=== PATIENT | male | born 1960 | race Two or more races ===

== ENCOUNTER 2022-03-18 20:08 | Inpatient (IN) | payer OTHER ==
[~2022-03-18] VITALS: Ht 175.3 cm; Wt 114.6 kg
[2022-03-18] MEDS ORDERED: IOHEXOL 350 MG/ML 100ML IJ ONE (20:56)
[2022-03-18] MEDS ORDERED: SODIUM CHLORIDE 0.9% 3,000 ML IV ONE (21:15)
[2022-03-18 22:31] LABS: Basophils # (auto) 0.1 10 ^3/uL (0-0.2); Basophils % (auto) 0.6 % (0.0-2.0); Eosinophils # (auto) 0 10 ^3/uL (0-0.8); Eosinophils % (auto) 0.1 % (0.0-7.0); Hematocrit 39.8 % (41.0-53.0); Hemoglobin 13.4 g/dL (13.5-17.5); Lymphocytes % (auto) 9.6 % (10.0-50.0); Mean Corpuscular Hemoglobin 29.7 pg (28.0-32.0); Mean Corpuscular Hgb Conc. 33.7 g/dL (32.0-36.0); Monocytes % (auto) 9.8 % (0.0-12.0); Neutrophils # (auto) 8.5 10 ^3/uL (1.6-8.6); Neutrophils % (auto) 79.9 % (37.0-80.0); Red Blood Cells 4.52 10^6/uL (4.5-5.90); Red Cell Distribution Width 12.7 % (11.8-14.3); White Blood Cell 10.6 10^3/uL (4.4-10.8)
[2022-03-18 22:50] LABS: Albumin 3.8 g/dL (3.4-5.0); BUN/Creatinine Ratio 17.3; Calcium 9.3 mg/dL (8.5-10.1); Potassium 4.3 mmol/L (3.5-5.1)
[2022-03-18 22:53] LABS: Total Protein 7.8 g/dL (6.4-8.2)
[2022-03-19] MEDS ORDERED: fentaNYL CITRATE 100 MCG/2 ML VL IV ONE (01:00)
[2022-03-19 03:28] LABS: Alcohol, Urine < 3.0 mg/dL (0-10); Amphetamine Screen, Urine NEGATIVE (NEGATIVE); Barbiturate Scree,Urine NEGATIVE (NEGATIVE); Benzodiazephine Screen, Urine NEGATIVE (NEGATIVE); Cannabinoid Screen, Urine NEGATIVE (NEGATIVE); Cocaine Screen, Urine NEGATIVE (NEGATIVE); Opiate Scree,Urine NEGATIVE (NEGATIVE); Phencyclidine Screen, Urine NEGATIVE (NEGATIVE)
[2022-03-19 03:48] LABS: Urine Bacteria NONE SEEN /hpf (None Seen); Urine WBC 1 /hpf (0 - 3)
[2022-03-19 03:51] LABS: Urine Specific Gravity 1.015 (1.001-1.035)
[2022-03-19 03:52] LABS: Urine Blood 1+ /uL (Negative)
[2022-03-19] MEDS ORDERED: HYDROmorphone HCL 2 MG/ML VL/or syr IV ONE (04:30)
[2022-03-19] MEDS ORDERED: ONDANSETRON HCL 4 MG/2 ML VIAL IV ONE (04:30)
[2022-03-19] MEDS ORDERED: MORPHINE SULFATE INJ 2 MG/ml SYRG IV PRN (09:45)
[2022-03-19] MEDS ORDERED: ACETAMINOPHEN 325 MG TAB PO PRN (09:45)
[2022-03-19] MEDS ORDERED: NITROGLYCERIN 0.4 MG SL TAB SL PRN (09:45)
[2022-03-19] MEDS ORDERED: D5W/SOD CHL 0.45%/KCL 20MEQ 1,000 ML IV ONE (09:45)
[2022-03-19] MEDS ORDERED: DEXTROSE (50%) 50ML SYRG IV PRN (09:45)
[2022-03-19] MEDS: metroNIDAZOLE 500MG/100ML 100 ML IV SCH ×2 (10:13→17:47)
[2022-03-19] MEDS: PANTOPRAZOLE 40 MG/10 ML VIAL INJ IV SCH (10:14)
[2022-03-19] MEDS: ENOXAPARIN SOD 40 MG/0.4 ML SYRINGE SC SCH (10:14)
[2022-03-19] MEDS: HYDROmorphone HCL 2 MG/ML VL/or syr IV PRN ×3 (10:40→21:58)
[2022-03-19] MEDS: ONDANSETRON HCL 4 MG/2 ML VIAL IV PRN (10:41)
[2022-03-19 10:59] LABS: Cholesterol 142 mg/dL (< 200); HDL Cholesterol 47 mg/dL (40-59); LDL Cholesterol 75 mg/dL (< 100); Triglycerides 123 mg/dL (< 150)
[2022-03-19] MEDS: CIPROFLOXACIN 400MG/200ML 200 ML IV SCH ×2 (11:10→21:56)
[2022-03-19] MEDS ORDERED: SODIUM CHLORIDE 0.9% 1,000 ML IV ONE (11:45)
[2022-03-19] MEDS: ACCU-CHEK COMFORT CURVE STRIP VI SCH ×2 (11:58→17:56)
[2022-03-19] MEDS: InsuLIN REG 1unit/0.01ml Soln (100units/ml) SC SCH ×2 (12:01→17:56)
[2022-03-20] MEDS: InsuLIN REG 1unit/0.01ml Soln (100units/ml) SC SCH ×5 (01:02→22:20)
[2022-03-20] MEDS: ACCU-CHEK COMFORT CURVE STRIP VI SCH ×5 (01:03→22:20)
[2022-03-20] MEDS: metroNIDAZOLE 500MG/100ML 100 ML IV SCH ×3 (02:43→18:19)
[2022-03-20 05:39] LABS: Basophils # (auto) 0 10 ^3/uL (0-0.2); Basophils % (auto) 0.2 % (0.0-2.0); Eosinophils # (auto) 0 10 ^3/uL (0-0.8); Hemoglobin 11.6 g/dL (13.5-17.5); Lymphocytes # (auto) 0.6 10 ^3/uL (0.4-5.4); Lymphocytes % (auto) 3.3 % (10.0-50.0); Mean Corpuscular Hemoglobin 30.8 pg (28.0-32.0); Mean Corpuscular Hgb Conc. 34.2 g/dL (32.0-36.0); Monocytes # (auto) 1.4 10 ^3/uL (0-1.3); Monocytes % (auto) 8.2 % (0.0-12.0); Neutrophils # (auto) 15.3 10 ^3/uL (1.6-8.6); Neutrophils % (auto) 88.3 % (37.0-80.0); Red Blood Cells 3.78 10^6/uL (4.5-5.90); Red Cell Distribution Width 13.5 % (11.8-14.3); White Blood Cell 17.4 10^3/uL (4.4-10.8)
[2022-03-20 05:53] LABS: Albumin 3.5 g/dL (3.4-5.0); Calcium 8.6 mg/dL (8.5-10.1); Potassium 4.4 mmol/L (3.5-5.1)
[2022-03-20 05:58] LABS: BUN/Creatinine Ratio 12.1; Total Protein 7.2 g/dL (6.4-8.2)
[2022-03-20] MEDS: ONDANSETRON HCL 4 MG/2 ML VIAL IV PRN ×4 (06:21→22:49)
[2022-03-20] MEDS: HYDROmorphone HCL 2 MG/ML VL/or syr IV PRN ×4 (06:24→22:50)
[2022-03-20] MEDS: ENOXAPARIN SOD 40 MG/0.4 ML SYRINGE SC SCH (09:47)
[2022-03-20] MEDS: PANTOPRAZOLE 40 MG/10 ML VIAL INJ IV SCH (09:55)
[2022-03-20] MEDS: CIPROFLOXACIN 400MG/200ML 200 ML IV SCH ×2 (10:41→22:49)
[2022-03-20 11:40] LABS: INR 1.29 (0.9-1.15); Partial Thromboplastin Time 32.2 sec (24.6-33.4)
[2022-03-20] MEDS ORDERED: HYDROcodone-ACET 5/325MG TAB PO PRN (13:00)
[2022-03-20] MEDS ORDERED: diphenhdrAMINE HCL 50 MG/1 ML VL IV ONE (13:00)
[2022-03-20 13:01] LABS: Hepatitis B Surface Antibody Negative (Negative)
[2022-03-20 13:39] LABS: Hepatitis A Total Antibody Negative (Negative)
[2022-03-20] MEDS: SODIUM CHLORIDE 0.9% 1,000 ML IV SCH ×2 (13:45→20:30)
[2022-03-20 15:54] LABS: Hepatitis C Antibody Negative (Negative)
[2022-03-20 16:48] VITALS: BP 92/60
[2022-03-20 16:50] VITALS: BP 92/60
[2022-03-20] MEDS ORDERED: DULA0.5I SC (21:23)
[2022-03-20] MEDS ORDERED: INSU1INJ19 SC (21:23)
[2022-03-20] MEDS ORDERED: SIMV-8 PO (21:23)
[2022-03-20] MEDS ORDERED: SERT25TA14 PO (21:23)
[2022-03-20] MEDS ORDERED: HYDR200T36 PO (21:23)
[2022-03-20] MEDS ORDERED: GABA-339 PO (21:23)
[2022-03-20] MEDS ORDERED: METO5TAB2 PO (21:23)
[2022-03-20] MEDS ORDERED: LISI2.5T47 PO (21:23)
[2022-03-20 22:00] VITALS: BP 114/57
[2022-03-20] MEDS: INSULIN LANTUS (GLARGINE) 1 /0.01ml (100units/ml) SC SCH (22:21)
[2022-03-21] VITALS (38 sets, daily range): BP systolic 81–179; BP diastolic 49–100
[2022-03-21] MEDS: metroNIDAZOLE 500MG/100ML 100 ML IV SCH ×3 (01:57→18:45)
[2022-03-21] MEDS: SODIUM CHLORIDE 0.9% 1,000 ML IV SCH ×3 (04:30→18:27)
[2022-03-21] MEDS: ACCU-CHEK COMFORT CURVE STRIP VI SCH ×3 (05:50→17:54)
[2022-03-21] MEDS: InsuLIN REG 1unit/0.01ml Soln (100units/ml) SC SCH ×3 (06:02→18:00)
[2022-03-21 06:25] LABS: Basophils # (auto) 0 10 ^3/uL (0-0.2); Basophils % (auto) 0.1 % (0.0-2.0); Eosinophils # (auto) 0 10 ^3/uL (0-0.8); Hematocrit 32.5 % (41.0-53.0); Lymphocytes # (auto) 0.9 10 ^3/uL (0.4-5.4); Lymphocytes % (auto) 6.1 % (10.0-50.0); Mean Corpuscular Hemoglobin 30.9 pg (28.0-32.0); Mean Corpuscular Hgb Conc. 33.8 g/dL (32.0-36.0); Mean Corpuscular Volume 91.6 fL (80.0-100.0); Monocytes # (auto) 1.2 10 ^3/uL (0-1.3); Monocytes % (auto) 8.1 % (0.0-12.0); Neutrophils # (auto) 12.9 10 ^3/uL (1.6-8.6); Neutrophils % (auto) 85.7 % (37.0-80.0); Red Blood Cells 3.54 10^6/uL (4.5-5.90); Red Cell Distribution Width 13.5 % (11.8-14.3); White Blood Cell 15.1 10^3/uL (4.4-10.8)
[2022-03-21 06:51] LABS: Potassium 4.4 mmol/L (3.5-5.1)
[2022-03-21 06:55] LABS: Albumin 3.3 g/dL (3.4-5.0); BUN/Creatinine Ratio 8.9; Calcium 8.9 mg/dL (8.5-10.1)
[2022-03-21 06:58] LABS: Bilirubin, Total 6.2 mg/dL (0.2-1.0); Total Protein 6.3 g/dL (6.4-8.2)
[2022-03-21] MEDS: HYDROmorphone HCL 2 MG/ML VL/or syr IV PRN (08:05)
[2022-03-21] MEDS: ONDANSETRON HCL 4 MG/2 ML VIAL IV PRN (08:16)
[2022-03-21] MEDS: ENOXAPARIN SOD 40 MG/0.4 ML SYRINGE SC SCH (10:00)
[2022-03-21] MEDS: GABAPENTIN 300 MG CAP PO SCH ×3 (10:00→22:00)
[2022-03-21] MEDS ORDERED: levoFLOXacin 500MG 100 ML IV ONE (10:00)
[2022-03-21] MEDS: PANTOPRAZOLE 40 MG/10 ML VIAL INJ IV SCH (10:00)
[2022-03-21] MEDS: CIPROFLOXACIN 400MG/200ML 200 ML IV SCH ×2 (10:00→22:05)
[2022-03-21] MEDS ORDERED: BUPIVACAINE W/ EPINEPH 0.25% INJ 50ML MDV ONE (11:44)
[2022-03-21] MEDS ORDERED: fentaNYL CITRATE 100 MCG/2 ML VL ONE (12:19)
[2022-03-21] MEDS ORDERED: MIDAZOLAM HCL 2MG/2ML 2ml VIAL (1mg/ml) ONE (12:19)
[2022-03-21] MEDS ORDERED: ROCURONIUM 10MG/ML 10ML VIAL IV ONE (12:20)
[2022-03-21] MEDS ORDERED: LIDOCAINE 2% (LOCAL ANESTH.) PF 5ml SDV ONE (12:20)
[2022-03-21] MEDS ORDERED: ONDANSETRON HCL 4 MG/2 ML VIAL ONE (12:20)
[2022-03-21] MEDS ORDERED: PROPOFOL 10 MG/ML 20 ML IV ONE (12:20)
[2022-03-21] MEDS ORDERED: ONDANSETRON HCL 4 MG/2 ML VIAL IV PRN (13:15)
[2022-03-21] MEDS ORDERED: HYDROmorphone HCL 2 MG/ML VL/or syr IV PRN (13:15)
[2022-03-21] MEDS ORDERED: SUCCINYLCHOLINE CHLORIDE 20 MG/ML 10ML VIAL IV ONE (14:53)
[2022-03-21] MEDS: MIDAZOLAM DRIP 50 mg/50mL 50 ML IV SCH ×2 (17:22→21:56)
[2022-03-21] MEDS ORDERED: METOPROLOL TARTRATE 1MG/1ML-5ML VIAL IV PRN (18:30)
[2022-03-21] MEDS: fentaNYL Drip 2500mCg/250mlNS 250 ML IV SCH (18:45)
[2022-03-21] MEDS: SODIUM BICARBONATE 50ML VIAL 50 ML in SOD CHL 0.45% 1,000 ML IV SCH (20:08)
[2022-03-21] MEDS: INSULIN LANTUS (GLARGINE) 1 /0.01ml (100units/ml) SC SCH (22:19)
[2022-03-21] MEDS ORDERED: NOREPINEPHRINE 8 MG/250ML KIT 250 ML IV ONE (23:32)
[2022-03-22] VITALS (91 sets, daily range): BP systolic 81–168; BP diastolic 49–81
[2022-03-22 00:01] LABS: Hematocrit 28.6 % (41.0-53.0); Hemoglobin 9.8 g/dL (13.5-17.5)
[2022-03-22] MEDS: NOREPINEPHRINE 8 MG/250ML KIT 250 ML IV SCH ×2 (00:01→23:45)
[2022-03-22] MEDS: InsuLIN REG 1unit/0.01ml Soln (100units/ml) SC SCH ×4 (00:04→18:29)
[2022-03-22] MEDS: ACCU-CHEK COMFORT CURVE STRIP VI SCH ×4 (00:06→18:25)
[2022-03-22] MEDS: SODIUM BICARBONATE 50ML VIAL 50 ML in SOD CHL 0.45% 1,000 ML IV SCH ×3 (01:45→14:00)
[2022-03-22] MEDS: metroNIDAZOLE 500MG/100ML 100 ML IV SCH ×3 (02:26→18:23)
[2022-03-22 04:30] LABS: Basophils # (auto) 0 10 ^3/uL (0-0.2); Basophils % (auto) 0.4 % (0.0-2.0); Eosinophils # (auto) 0.1 10 ^3/uL (0-0.8); Eosinophils % (auto) 0.9 % (0.0-7.0); Hematocrit 29.1 % (41.0-53.0); Hemoglobin 9.8 g/dL (13.5-17.5); Lymphocytes # (auto) 0.6 10 ^3/uL (0.4-5.4); Lymphocytes % (auto) 7.6 % (10.0-50.0); Mean Corpuscular Hemoglobin 30.1 pg (28.0-32.0); Mean Corpuscular Hgb Conc. 33.6 g/dL (32.0-36.0); Mean Corpuscular Volume 89.5 fL (80.0-100.0); Monocytes % (auto) 11.4 % (0.0-12.0); Neutrophils # (auto) 6.8 10 ^3/uL (1.6-8.6); Neutrophils % (auto) 79.7 % (37.0-80.0); Nucleated Red Blood Cells % 0.1 %; Red Blood Cells 3.25 10^6/uL (4.5-5.90); Red Cell Distribution Width 13.6 % (11.8-14.3); White Blood Cell 8.5 10^3/uL (4.4-10.8)
[2022-03-22 05:01] LABS: Albumin 2.4 g/dL (3.4-5.0); Calcium 7.8 mg/dL (8.5-10.1)
[2022-03-22 05:07] LABS: BUN/Creatinine Ratio 9.8; Bilirubin, Total 5.9 mg/dL (0.2-1.0); Total Protein 4.9 g/dL (6.4-8.2)
[2022-03-22] MEDS ORDERED: ACETAMINOPHEN 650 mg PER 20.3 mL UD ONE (06:00)
[2022-03-22] MEDS: GABAPENTIN 300 MG CAP PO SCH ×3 (06:00→22:29)
[2022-03-22] MEDS: ENOXAPARIN SOD 40 MG/0.4 ML SYRINGE SC SCH (10:06)
[2022-03-22] MEDS: PANTOPRAZOLE 40 MG/10 ML VIAL INJ IV SCH (10:07)
[2022-03-22] MEDS ORDERED: FUROSEMIDE 100 MG/10ML VIAL IV ONE (11:00)
[2022-03-22] MEDS: CIPROFLOXACIN 400MG/200ML 200 ML IV SCH ×2 (11:47→22:30)
[2022-03-22 12:21] LABS: Urine Bacteria NONE SEEN /hpf (None Seen); Urine Blood 3+ /uL (Negative); Urine Specific Gravity 1.016 (1.001-1.035); Urine WBC 7 /hpf (0 - 3)
[2022-03-22 12:26] LABS: Sodium Urine 33 mmol/L (40-220)
[2022-03-22 12:29] LABS: Creatinine, Urine 136 mg/dL (30.0-125.0)
[2022-03-22] MEDS ORDERED: BUMETANIDE 2.5mg/10ml (0.25 mg/ml) INJ IV ONE (18:15)
[2022-03-22] MEDS: fentaNYL Drip 2500mCg/250mlNS 250 ML IV SCH (18:30)
[2022-03-22] MEDS: INSULIN LANTUS (GLARGINE) 1 /0.01ml (100units/ml) SC SCH (23:14)
[2022-03-23] VITALS (61 sets, daily range): BP systolic 104–155; BP diastolic 39–83
[2022-03-23] MEDS: ACCU-CHEK COMFORT CURVE STRIP VI SCH ×4 (00:50→18:08)
[2022-03-23] MEDS: InsuLIN REG 1unit/0.01ml Soln (100units/ml) SC SCH ×4 (00:51→18:00)
[2022-03-23] MEDS: SODIUM BICARBONATE 50ML VIAL 50 ML in SOD CHL 0.45% 1,000 ML IV SCH ×3 (04:16→23:30)
[2022-03-23] MEDS: metroNIDAZOLE 500MG/100ML 100 ML IV SCH ×3 (04:16→18:09)
[2022-03-23 04:26] LABS: Basophils # (auto) 0.1 10 ^3/uL (0-0.2); Eosinophils # (auto) 0.2 10 ^3/uL (0-0.8); Eosinophils % (auto) 2.4 % (0.0-7.0); Hematocrit 31.6 % (41.0-53.0); Hemoglobin 10.8 g/dL (13.5-17.5); Lymphocytes # (auto) 2.2 10 ^3/uL (0.4-5.4); Lymphocytes % (auto) 25.5 % (10.0-50.0); Mean Corpuscular Hemoglobin 30.4 pg (28.0-32.0); Mean Corpuscular Hgb Conc. 34.3 g/dL (32.0-36.0); Mean Corpuscular Volume 88.7 fL (80.0-100.0); Monocytes # (auto) 0.8 10 ^3/uL (0-1.3); Monocytes % (auto) 9.3 % (0.0-12.0); Neutrophils # (auto) 5.3 10 ^3/uL (1.6-8.6); Neutrophils % (auto) 61.8 % (37.0-80.0); Red Blood Cells 3.56 10^6/uL (4.5-5.90); Red Cell Distribution Width 13.8 % (11.8-14.3); White Blood Cell 8.5 10^3/uL (4.4-10.8)
[2022-03-23 04:33] LABS: Albumin 2.3 g/dL (3.4-5.0); Anion Gap 15 (5-15); BUN/Creatinine Ratio 9.1; Blood Urea Nitrogen 77 mg/dL (7-18); Calcium 7.5 mg/dL (8.5-10.1); Carbon Dioxide 20 mmol/L (21-32); Chloride 98 mmol/L (98-107); GFR African American 8 mL/min; GFR Non-African American 7 mL/min; Glucose 171 mg/dL (74-106); Lipase 429 U/L (73-393); Potassium 4.2 mmol/L (3.5-5.1); Sodium 133 mmol/L (136-145)
[2022-03-23 04:36] LABS: Alanine Aminotransferase 151 U/L (16-61); Alkaline Phosphatase 344 U/L (45-117); Aspartate Aminotransferase 81 U/L (15-37); Bilirubin, Total 5.8 mg/dL (0.2-1.0); Total Protein 4.9 g/dL (6.4-8.2)
[2022-03-23] MEDS: GABAPENTIN 300 MG CAP PO SCH ×3 (05:45→22:06)
[2022-03-23] MEDS: PANTOPRAZOLE 40 MG/10 ML VIAL INJ IV SCH (11:38)
[2022-03-23] MEDS: CIPROFLOXACIN 400MG/200ML 200 ML IV SCH ×2 (11:39→22:06)
[2022-03-23] MEDS: FUROSEMIDE 100 MG/10ML VIAL IV SCH ×2 (11:56→18:08)
[2022-03-23] MEDS: ENOXAPARIN SOD 40 MG/0.4 ML SYRINGE SC SCH (12:00)
[2022-03-23] MEDS: MIDAZOLAM DRIP 50 mg/50mL 50 ML IV SCH (13:45)
[2022-03-23] MEDS: fentaNYL Drip 2500mCg/250mlNS 250 ML IV SCH (18:30)
[2022-03-23] MEDS: INSULIN LANTUS (GLARGINE) 1 /0.01ml (100units/ml) SC SCH (22:15)
[2022-03-23] MEDS: NOREPINEPHRINE 8 MG/250ML KIT 250 ML IV SCH (23:45)
[2022-03-24] VITALS (25 sets, daily range): BP systolic 117–175; BP diastolic 52–93
[2022-03-24] MEDS: ACCU-CHEK COMFORT CURVE STRIP VI SCH ×5 (00:24→23:19)
[2022-03-24] MEDS: SODIUM BICARBONATE 50ML VIAL 50 ML in SOD CHL 0.45% 1,000 ML IV SCH ×2 (00:32→18:18)
[2022-03-24 04:07] LABS: BUN/Creatinine Ratio 10.8; Calcium 7.8 mg/dL (8.5-10.1); Potassium 4.4 mmol/L (3.5-5.1)
[2022-03-24 04:28] LABS: Hematocrit 29.5 % (41.0-53.0); Mean Corpuscular Hemoglobin 29.8 pg (28.0-32.0); Mean Corpuscular Hgb Conc. 33.8 g/dL (32.0-36.0); Mean Corpuscular Volume 88.1 fL (80.0-100.0); Red Blood Cells 3.35 10^6/uL (4.5-5.90); Red Cell Distribution Width 13.8 % (11.8-14.3); White Blood Cell 8.1 10^3/uL (4.4-10.8)
[2022-03-24 04:38] LABS: Basophils % (manual) 0 (0.0-2.0); Blast Cells 0; Metamyelocytes % 0; Myelocytes % 0; Promyelocytes % 0; Reactive Lymphocytes 0
[2022-03-24] MEDS: InsuLIN REG 1unit/0.01ml Soln (100units/ml) SC SCH ×5 (05:59→23:18)
[2022-03-24] MEDS: metroNIDAZOLE 500MG/100ML 100 ML IV SCH ×3 (06:01→17:49)
[2022-03-24 06:49] LABS: Band Neutrophils % (manual) 1; Eosinophils % (manual) 5 (0-7); Lymphocytes % (manual) 18 (10.0-50.0); Monocytes % (manual) 12 (0-12)
[2022-03-24] MEDS: GABAPENTIN 300 MG CAP PO SCH ×3 (06:58→23:10)
[2022-03-24] MEDS: FUROSEMIDE 100 MG/10ML VIAL IV SCH ×2 (06:59→17:49)
[2022-03-24] MEDS: PANTOPRAZOLE 40 MG/10 ML VIAL INJ IV SCH (09:09)
[2022-03-24] MEDS: CIPROFLOXACIN 400MG/200ML 200 ML IV SCH ×2 (09:09→23:10)
[2022-03-24] MEDS: ENOXAPARIN SOD 40 MG/0.4 ML SYRINGE SC SCH (09:10)
[2022-03-24] MEDS: MIDAZOLAM DRIP 50 mg/50mL 50 ML IV SCH (13:45)
[2022-03-24] MEDS: fentaNYL Drip 2500mCg/250mlNS 250 ML IV SCH (18:30)
[2022-03-24] MEDS: INSULIN LANTUS (GLARGINE) 1 /0.01ml (100units/ml) SC SCH (23:18)
[2022-03-25] MEDS: metroNIDAZOLE 500MG/100ML 100 ML IV SCH ×3 (02:54→17:59)
[2022-03-25 05:00] VITALS: BP 141/64
[2022-03-25] MEDS: GABAPENTIN 300 MG CAP PO SCH ×3 (05:14→21:19)
[2022-03-25] MEDS: FUROSEMIDE 100 MG/10ML VIAL IV SCH (05:14)
[2022-03-25] MEDS: ACCU-CHEK COMFORT CURVE STRIP VI SCH ×4 (05:15→23:31)
[2022-03-25] MEDS: InsuLIN REG 1unit/0.01ml Soln (100units/ml) SC SCH ×4 (05:15→23:31)
[2022-03-25 07:53] LABS: Albumin 2.1 g/dL (3.4-5.0); BUN/Creatinine Ratio 12.3; Bilirubin, Total 3.1 mg/dL (0.2-1.0); Calcium 7.3 mg/dL (8.5-10.1); Potassium 4.5 mmol/L (3.5-5.1); Total Protein 4.7 g/dL (6.4-8.2)
[2022-03-25 09:11] VITALS: BP 135/69
[2022-03-25] MEDS: ENOXAPARIN SOD 40 MG/0.4 ML SYRINGE SC SCH (09:34)
[2022-03-25] MEDS: CIPROFLOXACIN 400MG/200ML 200 ML IV SCH ×2 (09:34→21:19)
[2022-03-25] MEDS: PANTOPRAZOLE 40 MG/10 ML VIAL INJ IV SCH (09:34)
[2022-03-25 12:30] VITALS: BP 125/67
[2022-03-25] MEDS: SODIUM BICARBONATE 50ML VIAL 50 ML in SOD CHL 0.45% 1,000 ML IV SCH (17:01)
[2022-03-25 17:43] VITALS: BP 137/64
[2022-03-25 22:00] VITALS: BP 142/75
[2022-03-25] MEDS: INSULIN LANTUS (GLARGINE) 1 /0.01ml (100units/ml) SC SCH (23:30)
[2022-03-26] MEDS: metroNIDAZOLE 500MG/100ML 100 ML IV SCH ×3 (01:41→18:44)
[2022-03-26 05:00] VITALS: BP 152/74
[2022-03-26] MEDS: GABAPENTIN 300 MG CAP PO SCH ×3 (05:01→21:34)
[2022-03-26] MEDS: InsuLIN REG 1unit/0.01ml Soln (100units/ml) SC SCH ×4 (05:01→23:57)
[2022-03-26] MEDS: ACCU-CHEK COMFORT CURVE STRIP VI SCH ×4 (05:01→21:35)
[2022-03-26 08:43] LABS: BUN/Creatinine Ratio 11.4; Calcium 7.1 mg/dL (8.5-10.1); Potassium 4.3 mmol/L (3.5-5.1)
[2022-03-26 09:33] VITALS: BP 133/61
[2022-03-26] MEDS: CIPROFLOXACIN 400MG/200ML 200 ML IV SCH ×2 (10:31→21:35)
[2022-03-26] MEDS: ENOXAPARIN SOD 40 MG/0.4 ML SYRINGE SC SCH (10:31)
[2022-03-26] MEDS: PANTOPRAZOLE 40 MG/10 ML VIAL INJ IV SCH (10:31)
[2022-03-26 13:51] VITALS: BP 150/66
[2022-03-26] MEDS: SODIUM BICARBONATE 50ML VIAL 50 ML in SOD CHL 0.45% 1,000 ML IV SCH (15:24)
[2022-03-26 17:06] VITALS: BP 123/64
[2022-03-26] MEDS: diphenhdrAMINE HCL 25 MG CAP PO PRN (21:35)
[2022-03-26] MEDS: ARTIFICIAL TEARS 15ml EACHEYE PRN (21:36)
[2022-03-26 22:00] VITALS: BP 132/70
[2022-03-26] MEDS: INSULIN LANTUS (GLARGINE) 1 /0.01ml (100units/ml) SC SCH (22:08)
[2022-03-27] MEDS: metroNIDAZOLE 500MG/100ML 100 ML IV SCH ×3 (01:55→18:12)
[2022-03-27 05:00] VITALS: BP 135/65
[2022-03-27] MEDS: GABAPENTIN 300 MG CAP PO SCH (06:07)
[2022-03-27] MEDS: ACCU-CHEK COMFORT CURVE STRIP VI SCH ×3 (06:07→17:29)
[2022-03-27] MEDS: InsuLIN REG 1unit/0.01ml Soln (100units/ml) SC SCH ×3 (06:20→18:13)
[2022-03-27 07:10] LABS: Hematocrit 28.4 % (41.0-53.0); Hemoglobin 9.6 g/dL (13.5-17.5); Mean Corpuscular Hgb Conc. 33.9 g/dL (32.0-36.0); Mean Corpuscular Volume 88.5 fL (80.0-100.0); Red Blood Cells 3.21 10^6/uL (4.5-5.90); Red Cell Distribution Width 14.1 % (11.8-14.3)
[2022-03-27 07:11] LABS: BUN/Creatinine Ratio 11.8; Calcium 7.1 mg/dL (8.5-10.1); Potassium 4.1 mmol/L (3.5-5.1)
[2022-03-27 07:32] LABS: Basophils % (manual) 0 (0.0-2.0); Blast Cells 0; Myelocytes % 0; Promyelocytes % 0; Reactive Lymphocytes 0
[2022-03-27 09:00] VITALS: BP 124/69
[2022-03-27] MEDS: SODIUM CHLORIDE 0.9% 1,000 ML IV SCH ×2 (09:15→17:30)
[2022-03-27 09:39] LABS: Band Neutrophils % (manual) 3; Eosinophils % (manual) 4 (0-7); Lymphocytes % (manual) 15 (10.0-50.0); Metamyelocytes % 2; Monocytes % (manual) 13 (0-12)
[2022-03-27] MEDS: CIPROFLOXACIN 400MG/200ML 200 ML IV SCH ×2 (09:48→21:49)
[2022-03-27] MEDS: ENOXAPARIN SOD 40 MG/0.4 ML SYRINGE SC SCH (09:48)
[2022-03-27] MEDS: PANTOPRAZOLE 40 MG/10 ML VIAL INJ IV SCH (09:48)
[2022-03-27] MEDS ORDERED: HYDROmorphone HCL 2 MG/ML VL/or syr IV PRN (11:45)
[2022-03-27 13:00] VITALS: BP 123/66
[2022-03-27] MEDS: GABAPENTIN 100 MG CAP PO SCH ×2 (14:07→21:49)
[2022-03-27 17:00] VITALS: BP 145/76
[2022-03-27] MEDS ORDERED: OXYCODONE W/ ACETAMINOPHEN 5/325MG TABLET PO PRN (17:15)
[2022-03-27] MEDS: ARTIFICIAL TEARS 15ml EACHEYE PRN (18:13)
[2022-03-27] MEDS: diphenhdrAMINE HCL 25 MG CAP PO PRN (18:14)
[2022-03-27] MEDS: HYDROmorphone HCL 2 MG/ML VL/or syr IV PRN (20:10)
[2022-03-27] MEDS: INSULIN LANTUS (GLARGINE) 1 /0.01ml (100units/ml) SC SCH (21:45)
[2022-03-27] MEDS: OXYCODONE W/ ACETAMINOPHEN 5/325MG TABLET PO PRN (23:58)
[2022-03-28] MEDS: ACCU-CHEK COMFORT CURVE STRIP VI SCH ×4 (00:04→16:54)
[2022-03-28] MEDS: InsuLIN REG 1unit/0.01ml Soln (100units/ml) SC SCH ×4 (00:07→16:59)
[2022-03-28] MEDS: SODIUM CHLORIDE 0.9% 1,000 ML IV SCH ×3 (00:09→16:22)
[2022-03-28] MEDS: metroNIDAZOLE 500MG/100ML 100 ML IV SCH ×3 (01:36→18:09)
[2022-03-28] MEDS: diphenhdrAMINE HCL 25 MG CAP PO PRN ×2 (01:36→16:23)
[2022-03-28] MEDS: ONDANSETRON HCL 4 MG/2 ML VIAL IV PRN ×2 (01:36→16:23)
[2022-03-28] MEDS: HYDROmorphone HCL 2 MG/ML VL/or syr IV PRN ×2 (02:17→20:31)
[2022-03-28 05:00] VITALS: BP 108/61
[2022-03-28] MEDS: GABAPENTIN 100 MG CAP PO SCH ×3 (06:12→22:01)
[2022-03-28 08:39] LABS: Potassium 4.3 mmol/L (3.5-5.1)
[2022-03-28 08:49] LABS: Albumin 2.4 g/dL (3.4-5.0); BUN/Creatinine Ratio 12.5; Bilirubin, Total 1.6 mg/dL (0.2-1.0); Calcium 6.8 mg/dL (8.5-10.1); Total Protein 5.2 g/dL (6.4-8.2)
[2022-03-28] MEDS: CIPROFLOXACIN 400MG/200ML 200 ML IV SCH ×2 (09:37→22:00)
[2022-03-28] MEDS: ENOXAPARIN SOD 30 MG/0.3 ML SYRINGE SC SCH (09:37)
[2022-03-28 09:48] VITALS: BP 106/64
[2022-03-28 13:10] VITALS: BP 103/52
[2022-03-28 17:26] VITALS: BP 147/80
[2022-03-28 22:00] VITALS: BP 103/45
[2022-03-28] MEDS: INSULIN LANTUS (GLARGINE) 1 /0.01ml (100units/ml) SC SCH (22:00)
[2022-03-29] MEDS: InsuLIN REG 1unit/0.01ml Soln (100units/ml) SC SCH ×5 (00:58→22:29)
[2022-03-29] MEDS: SODIUM CHLORIDE 0.9% 1,000 ML IV SCH ×3 (01:01→19:15)
[2022-03-29] MEDS: metroNIDAZOLE 500MG/100ML 100 ML IV SCH ×3 (02:10→19:17)
[2022-03-29 05:00] VITALS: BP 117/50
[2022-03-29] MEDS: GABAPENTIN 100 MG CAP PO SCH ×3 (05:53→22:04)
[2022-03-29] MEDS: ACCU-CHEK COMFORT CURVE STRIP VI SCH ×4 (05:55→19:17)
[2022-03-29 09:00] VITALS: BP 132/75
[2022-03-29] MEDS: diphenhdrAMINE HCL 25 MG CAP PO PRN ×2 (10:31→19:40)
[2022-03-29] MEDS: ENOXAPARIN SOD 30 MG/0.3 ML SYRINGE SC SCH (10:31)
[2022-03-29] MEDS ORDERED: TEMAZEPAM 15 MG CAP PO PRN (12:15)
[2022-03-29 13:00] VITALS: BP 142/73
[2022-03-29] MEDS: CIPROFLOXACIN 400MG/200ML 200 ML IV SCH (13:33)
[2022-03-29 16:40] VITALS: BP 119/64
[2022-03-29 22:00] VITALS: BP 139/65
[2022-03-29] MEDS: TEMAZEPAM 15 MG CAP PO PRN (22:20)
[2022-03-29] MEDS: HYDROmorphone HCL 2 MG/ML VL/or syr IV PRN (22:21)
[2022-03-29] MEDS: INSULIN LANTUS (GLARGINE) 1 /0.01ml (100units/ml) SC SCH (22:28)
[2022-03-30] MEDS: metroNIDAZOLE 500MG/100ML 100 ML IV SCH ×3 (02:30→18:21)
[2022-03-30 05:00] VITALS: BP 129/68
[2022-03-30] MEDS: ACCU-CHEK COMFORT CURVE STRIP VI SCH ×4 (05:42→18:21)
[2022-03-30] MEDS: GABAPENTIN 100 MG CAP PO SCH ×3 (05:51→21:41)
[2022-03-30] MEDS: InsuLIN REG 1unit/0.01ml Soln (100units/ml) SC SCH ×3 (05:52→18:20)
[2022-03-30 06:51] LABS: Potassium 4.2 mmol/L (3.5-5.1)
[2022-03-30 06:57] LABS: BUN/Creatinine Ratio 14.3; Calcium 7.2 mg/dL (8.5-10.1)
[2022-03-30 08:55] VITALS: BP 105/73
[2022-03-30] MEDS: SODIUM CHLORIDE 0.9% 1,000 ML IV SCH ×3 (12:41→16:00)
[2022-03-30] MEDS: CIPROFLOXACIN 400MG/200ML 200 ML IV SCH (12:42)
[2022-03-30] MEDS: ENOXAPARIN SOD 30 MG/0.3 ML SYRINGE SC SCH (12:42)
[2022-03-30 13:00] VITALS: BP 122/72
[2022-03-30 16:39] VITALS: BP 111/74
[2022-03-30] MEDS: HYDROmorphone HCL 2 MG/ML VL/or syr IV PRN (21:44)
[2022-03-30] MEDS: INSULIN LANTUS (GLARGINE) 1 /0.01ml (100units/ml) SC SCH (21:45)
[2022-03-30 22:00] VITALS: BP 146/71
[2022-03-31] MEDS: SODIUM CHLORIDE 0.9% 1,000 ML IV SCH ×2 (00:15→05:39)
[2022-03-31] MEDS: ACCU-CHEK COMFORT CURVE STRIP VI SCH ×5 (00:18→22:34)
[2022-03-31] MEDS: InsuLIN REG 1unit/0.01ml Soln (100units/ml) SC SCH ×4 (00:18→17:31)
[2022-03-31] MEDS: metroNIDAZOLE 500MG/100ML 100 ML IV SCH ×3 (02:21→17:31)
[2022-03-31] MEDS: diphenhdrAMINE HCL 25 MG CAP PO PRN (04:05)
[2022-03-31 05:00] VITALS: BP 154/79
[2022-03-31] MEDS: GABAPENTIN 100 MG CAP PO SCH ×3 (05:39→22:34)
[2022-03-31 06:42] LABS: BUN/Creatinine Ratio 16.4; Calcium 7.3 mg/dL (8.5-10.1); Potassium 4.5 mmol/L (3.5-5.1)
[2022-03-31 08:46] VITALS: BP 114/67
[2022-03-31] MEDS: CIPROFLOXACIN 400MG/200ML 200 ML IV SCH (09:56)
[2022-03-31] MEDS: ENOXAPARIN SOD 30 MG/0.3 ML SYRINGE SC SCH (09:57)
[2022-03-31] MEDS: HYDROmorphone HCL 2 MG/ML VL/or syr IV PRN ×3 (10:40→22:36)
[2022-03-31 12:52] VITALS: BP 126/81
[2022-03-31] MEDS: SODIUM BICARBONATE 50ML VIAL 50 ML in SOD CHL 0.45% 1,000 ML IV SCH ×2 (14:26→18:15)
[2022-03-31] MEDS: DOPamine 1600MCG/ML D5W 250 ML IV SCH (14:29)
[2022-03-31] MEDS: ONDANSETRON HCL 4 MG/2 ML VIAL IV PRN (16:35)
[2022-03-31 16:54] VITALS: BP 110/62
[2022-03-31 22:00] VITALS: BP 128/86
[2022-03-31] MEDS: INSULIN LANTUS (GLARGINE) 1 /0.01ml (100units/ml) SC SCH (22:00)
[2022-04-01] MEDS: SODIUM BICARBONATE 50ML VIAL 50 ML in SOD CHL 0.45% 1,000 ML IV SCH (01:15)
[2022-04-01 05:36] VITALS: BP 140/79
[2022-04-01] MEDS: InsuLIN REG 1unit/0.01ml Soln (100units/ml) SC SCH ×4 (06:00→18:00)
[2022-04-01] MEDS: GABAPENTIN 100 MG CAP PO SCH ×3 (06:13→22:21)
[2022-04-01] MEDS: metroNIDAZOLE 500MG/100ML 100 ML IV SCH ×3 (06:13→18:50)
[2022-04-01] MEDS: ACCU-CHEK COMFORT CURVE STRIP VI SCH ×3 (06:13→18:00)
[2022-04-01] MEDS ORDERED: MIDAZOLAM HCL 2MG/2ML 2ml VIAL (1mg/ml) ONE (07:26)
[2022-04-01] MEDS ORDERED: fentaNYL CITRATE 100 MCG/2 ML VL ONE (07:26)
[2022-04-01] MEDS ORDERED: ONDANSETRON HCL 4 MG/2 ML VIAL ONE (07:27)
[2022-04-01] MEDS ORDERED: LIDOCAINE 2% (LOCAL ANESTH.) PF 5ml SDV ONE (07:27)
[2022-04-01] MEDS ORDERED: PROPOFOL 10 MG/ML 20 ML IV ONE (08:17)
[2022-04-01 09:00] VITALS: BP 112/56
[2022-04-01] MEDS: CIPROFLOXACIN 400MG/200ML 200 ML IV SCH (09:07)
[2022-04-01] MEDS: ENOXAPARIN SOD 30 MG/0.3 ML SYRINGE SC SCH (09:08)
[2022-04-01] MEDS: SOD CHL 0.45% 1,000 ML IV SCH ×3 (10:30→23:50)
[2022-04-01] MEDS: DOPamine 1600MCG/ML D5W 250 ML IV SCH (12:37)
[2022-04-01 13:00] VITALS: BP 156/78
[2022-04-01] MEDS: diphenhdrAMINE HCL 25 MG CAP PO PRN (15:08)
[2022-04-01 22:00] VITALS: BP 158/72
[2022-04-01] MEDS: INSULIN LANTUS (GLARGINE) 1 /0.01ml (100units/ml) SC SCH (22:22)
[2022-04-01] MEDS: TEMAZEPAM 15 MG CAP PO PRN (22:25)
[2022-04-01] MEDS: HYDROmorphone HCL 2 MG/ML VL/or syr IV PRN (22:25)
[2022-04-02] MEDS: diphenhdrAMINE HCL 25 MG CAP PO PRN ×2 (00:27→14:08)
[2022-04-02] MEDS: ACCU-CHEK COMFORT CURVE STRIP VI SCH ×5 (00:30→17:46)
[2022-04-02] MEDS: InsuLIN REG 1unit/0.01ml Soln (100units/ml) SC SCH ×4 (01:13→17:50)
[2022-04-02] MEDS: metroNIDAZOLE 500MG/100ML 100 ML IV SCH ×3 (01:30→17:32)
[2022-04-02 04:50] VITALS: BP 112/77
[2022-04-02 05:36] LABS: Basophils # (auto) 0.1 10 ^3/uL (0-0.2); Basophils % (auto) 0.6 % (0.0-2.0); Eosinophils # (auto) 0.5 10 ^3/uL (0-0.8); Hematocrit 25.4 % (41.0-53.0); Hemoglobin 8.7 g/dL (13.5-17.5); Lymphocytes # (auto) 1.1 10 ^3/uL (0.4-5.4); Lymphocytes % (auto) 10.8 % (10.0-50.0); Mean Corpuscular Hemoglobin 31.1 pg (28.0-32.0); Mean Corpuscular Hgb Conc. 34.1 g/dL (32.0-36.0); Monocytes # (auto) 0.9 10 ^3/uL (0-1.3); Monocytes % (auto) 9.1 % (0.0-12.0); Neutrophils # (auto) 7.5 10 ^3/uL (1.6-8.6); Neutrophils % (auto) 74.5 % (37.0-80.0); Red Blood Cells 2.79 10^6/uL (4.5-5.90); Red Cell Distribution Width 13.5 % (11.8-14.3); White Blood Cell 10.1 10^3/uL (4.4-10.8)
[2022-04-02 05:48] LABS: Albumin 2.6 g/dL (3.4-5.0); Calcium 7.5 mg/dL (8.5-10.1); Potassium 4.1 mmol/L (3.5-5.1)
[2022-04-02 05:51] LABS: Bilirubin, Total 1.1 mg/dL (0.2-1.0); Total Protein 5.8 g/dL (6.4-8.2)
[2022-04-02] MEDS: SOD CHL 0.45% 1,000 ML IV SCH ×3 (06:30→20:50)
[2022-04-02] MEDS: GABAPENTIN 100 MG CAP PO SCH ×3 (06:30→20:58)
[2022-04-02 09:00] VITALS: BP 116/69
[2022-04-02] MEDS ORDERED: LORazepam 2MG/ML-1ML VIAL IV PRN (09:00)
[2022-04-02] MEDS: ENOXAPARIN SOD 30 MG/0.3 ML SYRINGE SC SCH (09:45)
[2022-04-02] MEDS: CIPROFLOXACIN 400MG/200ML 200 ML IV SCH (09:45)
[2022-04-02] MEDS: DOPamine 1600MCG/ML D5W 250 ML IV SCH (11:30)
[2022-04-02 13:00] VITALS: BP 152/74
[2022-04-02 16:44] VITALS: BP 143/62
[2022-04-02] MEDS: OXYCODONE W/ ACETAMINOPHEN 5/325MG TABLET PO PRN (20:51)
[2022-04-02] MEDS: INSULIN LANTUS (GLARGINE) 1 /0.01ml (100units/ml) SC SCH (21:23)
[2022-04-02 22:00] VITALS: BP 132/64
[2022-04-03] MEDS: ACCU-CHEK COMFORT CURVE STRIP VI SCH ×4 (00:07→17:14)
[2022-04-03] MEDS: InsuLIN REG 1unit/0.01ml Soln (100units/ml) SC SCH ×4 (00:41→17:21)
[2022-04-03] MEDS: OXYCODONE W/ ACETAMINOPHEN 5/325MG TABLET PO PRN (02:22)
[2022-04-03] MEDS: metroNIDAZOLE 500MG/100ML 100 ML IV SCH ×3 (02:22→17:27)
[2022-04-03 05:00] VITALS: BP 137/69
[2022-04-03 06:26] LABS: Potassium 3.7 mmol/L (3.5-5.1)
[2022-04-03 06:31] LABS: Albumin 2.4 g/dL (3.4-5.0); Calcium 7.7 mg/dL (8.5-10.1)
[2022-04-03 06:34] LABS: Bilirubin, Total 1.1 mg/dL (0.2-1.0); Total Protein 5.5 g/dL (6.4-8.2)
[2022-04-03] MEDS: SOD CHL 0.45% 1,000 ML IV SCH ×4 (06:45→22:37)
[2022-04-03] MEDS: GABAPENTIN 100 MG CAP PO SCH ×3 (07:08→22:00)
[2022-04-03] MEDS: DOPamine 1600MCG/ML D5W 250 ML IV SCH (07:16)
[2022-04-03 09:00] VITALS: BP 131/76
[2022-04-03] MEDS: CIPROFLOXACIN 400MG/200ML 200 ML IV SCH ×3 (09:08→22:00)
[2022-04-03] MEDS: ENOXAPARIN SOD 30 MG/0.3 ML SYRINGE SC SCH (09:09)
[2022-04-03 13:00] VITALS: BP 162/98
[2022-04-03] MEDS ORDERED: DOCUSATE SOD 100 MG CAP PO PRN (16:45)
[2022-04-03] MEDS ORDERED: LACTULOSE 20Gm/30ML SOLN PO PRN (16:45)
[2022-04-03 17:00] VITALS: BP 171/86
[2022-04-03 22:00] VITALS: BP 156/81
[2022-04-03] MEDS ORDERED: SENNA 8.6 MG TAB PO SCH (22:00)
[2022-04-03] MEDS: HYDROmorphone HCL 2 MG/ML VL/or syr IV PRN (22:01)
[2022-04-03] MEDS: INSULIN LANTUS (GLARGINE) 1 /0.01ml (100units/ml) SC SCH (22:31)
[2022-04-04] MEDS: ACCU-CHEK COMFORT CURVE STRIP VI SCH ×3 (00:48→11:57)
[2022-04-04] MEDS: InsuLIN REG 1unit/0.01ml Soln (100units/ml) SC SCH ×3 (00:53→12:05)
[2022-04-04] MEDS: ARTIFICIAL TEARS 15ml EACHEYE PRN (01:00)
[2022-04-04] MEDS: diphenhdrAMINE HCL 25 MG CAP PO PRN ×2 (01:00→13:47)
[2022-04-04] MEDS: metroNIDAZOLE 500MG/100ML 100 ML IV SCH ×2 (04:10→10:23)
[2022-04-04 05:00] VITALS: BP_SYST 135
[2022-04-04] MEDS: SOD CHL 0.45% 1,000 ML IV SCH (05:39)
[2022-04-04] MEDS: GABAPENTIN 100 MG CAP PO SCH ×2 (05:39→13:37)
[2022-04-04 06:35] LABS: Potassium 3.9 mmol/L (3.5-5.1)
[2022-04-04 06:43] LABS: Albumin 2.5 g/dL (3.4-5.0); BUN/Creatinine Ratio 20.6; Calcium 7.6 mg/dL (8.5-10.1)
[2022-04-04 06:45] LABS: Bilirubin, Total 0.9 mg/dL (0.2-1.0); Total Protein 5.6 g/dL (6.4-8.2)
[2022-04-04] MEDS: DOPamine 1600MCG/ML D5W 250 ML IV SCH (06:53)
[2022-04-04] MEDS: ONDANSETRON HCL 4 MG/2 ML VIAL IV PRN (07:14)
[2022-04-04 08:20] VITALS: BP 146/83
[2022-04-04] MEDS: CIPROFLOXACIN 400MG/200ML 200 ML IV SCH (09:03)
[2022-04-04] MEDS: ENOXAPARIN SOD 30 MG/0.3 ML SYRINGE SC SCH (09:03)
[2022-04-04] MEDS: OXYCODONE W/ ACETAMINOPHEN 5/325MG TABLET PO PRN (10:24)
[2022-04-04] MEDS ORDERED: SOD CHL 0.45% 1,000 ML IV SCH (11:15)
[2022-04-04 12:10] VITALS: BP 152/87
[2022-04-04 12:28] VITALS: BP 145/99
[2022-04-05] MEDS ORDERED: ENOXAPARIN SOD 40 MG/0.4 ML SYRINGE SC SCH (10:00)
== END 2022-04-04 16:05 | DRG 853 ==
LOC: EDBD 20:08 → ER 20:13 → TELE 03-19 09:52 → TELE-WESTW 03-20 16:19 → WEST WING 03-20 23:00 → ICU WEST 03-21 15:20 → TELE-WESTW 03-24 22:40
PROVIDERS: ADMIT Nurse Practitioner Family; ATTEND Hospitalist
PROC: 0BH17EZ Insertion of Endotracheal Airway into Trachea, Via Natural or Artificial Opening (ICD-10-PCS; 2022-03-21)
PROC: 5A1945Z Respiratory Ventilation, 24-96 Consecutive Hours (ICD-10-PCS; 2022-03-21)
PROC: 0FT44ZZ Resection of Gallbladder, Percutaneous Endoscopic Approach (ICD-10-PCS; principal; 2022-03-21 12:19)
PROC: 05HD33Z Insertion of Infusion Device into Right Cephalic Vein, Percutaneous Approach (ICD-10-PCS; 2022-03-24)
PROC: B54MZZA Ultrasonography of Right Upper Extremity Veins, Guidance (ICD-10-PCS; 2022-03-24)
DX: A41.9 Sepsis, unspecified organism (principal); J96.01 Acute respiratory failure with hypoxia; N17.0 Acute kidney failure with tubular necrosis; K80.00 Calculus of gallbladder with acute cholecystitis without obstruction; E87.1 Hypo-osmolality and hyponatremia; E87.4 Mixed disorder of acid-base balance; J98.11 Atelectasis; N39.0 Urinary tract infection, site not specified; K82.1 Hydrops of gallbladder; K82.A1 Gangrene of gallbladder in cholecystitis; E78.5 Hyperlipidemia, unspecified; K29.80 Duodenitis without bleeding; E11.65 Type 2 diabetes mellitus with hyperglycemia; E86.0 Dehydration; K86.89 Other specified diseases of pancreas; E66.01 Morbid (severe) obesity due to excess calories; F17.200 Nicotine dependence, unspecified, uncomplicated; E88.09 Other disorders of plasma-protein metabolism, not elsewhere classified; I10 Essential (primary) hypertension; Z20.822 Contact with and (suspected) exposure to COVID-19; E11.40 Type 2 diabetes mellitus with diabetic neuropathy, unspecified; Z88.0 Allergy status to penicillin; Z68.38 Body mass index [BMI] 38.0-38.9, adult; Z82.49 Family history of ischemic heart disease and other diseases of the circulatory system; Z90.49 Acquired absence of other specified parts of digestive tract; Z83.3 Family history of diabetes mellitus; Z79.4 Long term (current) use of insulin
CPT/HCPCS: 36415; 36600; 70551; 71045; 74177; 74181; 76705; 78226; 80048; 80053; 80061; 80307; 80320; 81001; 82150; 82570; 82805; 82962; 83036; 83605; 83690; 83880; 84300; 84484; 85007; 85014; 85018; 85025; 85027; 85610; 85730; 86704; 86706; 86708; 86803; 86850; 86900; 86901; 87070; 87075; 87081; 87205; 87340; 87426; 93005; 94002; 94003; 94640; 96361; 96365; 96367; 96372; 96375; 96376; 97110; 97116; 97163; 97530; C9113; G0378; J0330; J1815; J1956; J2001; J2250; J2405; J2704; J3490